=== PATIENT | female | born 1930 | race African-American/Black ===

== ENCOUNTER → 2018-08-04 | Outpatient (CLI) | END | disposition home or self-care (01) ==

== ENCOUNTER 2018-08-11 06:28 | Inpatient (IN) | END 2018-08-20 14:40 | disposition home or self-care (01) | DRG 331 ==

== ENCOUNTER 2018-08-25 23:26 | Inpatient (IN) | END 2018-09-04 19:54 | DRG 389 ==

== ENCOUNTER 2018-09-04 20:00 | Inpatient (IN) | END 2018-09-08 11:45 | disposition home health service (06) | DRG 948 ==

== ENCOUNTER → 2019-01-30 | Outpatient (CLI) | payer MEDICARE, BC ==
[~2019-01-30] MED LIST: ATEN-51 PO; BENA20TA4 PO; CALC600T24 PO; CHOL100062 PO; EZET10TA31 PO; FENO145T25 PO; FLAX1CAP3 PO; LEVO125T71 PO
== END | disposition home or self-care (01) ==
LOC: LAB 15:42
PROVIDERS: ATTEND Internal Medicine
DX: C18.9 Malignant neoplasm of colon, unspecified (principal)
CPT/HCPCS: 71046; 80053; 82378; 85025

== ENCOUNTER → 2019-02-09 | Outpatient (CLI) | payer MEDICARE, BC | END | disposition home or self-care (01) | LOC: RAD 15:16 | PROVIDERS: ATTEND Internal Medicine | DX: S22.41XA Multiple fractures of ribs, right side, initial encounter for closed fracture (principal); X58.XXXA Exposure to other specified factors, initial encounter; Y92.89 Other specified places as the place of occurrence of the external cause; I70.0 Atherosclerosis of aorta | CPT/HCPCS: 71046 ==